=== PATIENT | male | born 1935 | race African-American/Black ===

== ENCOUNTER 2016-11-05 13:44 | Outpatient (CLI) | payer MEDICARE, BC ==
[2016-11-05 14:25] LABS: HEMATOCRIT 24.8 % (37.9-51.0); HGB HCT DIFFERENCE -2.6; MEAN CORPUSCULAR HGB CONC 29.8 g/dL (32.0-36.0); MEAN CORPUSCULAR VOLUME 71 fl (80-97); RED BLOOD COUNT 3.52 10^6/uL (4.35-5.55); RED CELL DISTRIBUTION WIDTH 15.4 % (11.5-14.0); WHITE BLOOD COUNT 13.3 10^3/uL (4.0-10.5)
[2016-11-05 14:27] LABS: HEMOGLOBIN 7.4 g/dL (13.5-17.0)
[2016-11-05] MEDS ORDERED: NORMAL SALINE 1000 ML 1,000 ML IV PRN (14:38)
[2016-11-05] MEDS ORDERED: DIPHENHYDRAMINE HCL 25 MG CAPSULE PO PRN (14:39)
[2016-11-05] MEDS ORDERED: ACETAMINOPHEN 325 MG TABLET PO PRN (14:39)
[2016-11-05] MEDS ORDERED: FUROSEMIDE INJ/PF 20 MG/2 ML SDV IV PRN (14:40)
[2016-11-05 23:42] VITALS: BP 145/69
== END 2016-11-05 23:47 | disposition home or self-care (01) ==
LOC: II 13:44 → 2S 13:51 → II 23:47
PROVIDERS: ATTEND Internal Medicine Geriatric Medicine
PROC: 30233N1 Transfusion of Nonautologous Red Blood Cells into Peripheral Vein, Percutaneous Approach (ICD-10-PCS; principal; 2016-11-05)
DX: D64.9 Anemia, unspecified (principal); N18.6 End stage renal disease; Z99.2 Dependence on renal dialysis; J44.9 Chronic obstructive pulmonary disease, unspecified; R91.8 Other nonspecific abnormal finding of lung field
CPT/HCPCS: 86900; 86901; 36430; 86850; 86920; P9016; A9270 ×2

== ENCOUNTER → 2016-11-16 | Outpatient (CLI) | payer MEDICARE, BC | LOC: RAD 13:03 | PROVIDERS: ATTEND Nurse Practitioner Family | DX: R22.2 Localized swelling, mass and lump, trunk (principal); R91.8 Other nonspecific abnormal finding of lung field; I89.0 Lymphedema, not elsewhere classified | CPT/HCPCS: 71250 ==

== ENCOUNTER 2016-11-18 06:57 | Day surgery (SDC) | payer MEDICARE, BC ==
[2016-11-18 07:38] LABS: HEMATOCRIT 28.9 % (37.9-51.0); HEMOGLOBIN 8.9 g/dL (13.5-17.0); HGB HCT DIFFERENCE -2.2; MEAN CORPUSCULAR HEMOGLOBIN 22.2 pg (27.0-33.4); MEAN CORPUSCULAR HGB CONC 30.7 g/dL (32.0-36.0); MEAN CORPUSCULAR VOLUME 72 fl (80-97); RED CELL DISTRIBUTION WIDTH 18.9 % (11.5-14.0); WHITE BLOOD COUNT 15.7 10^3/uL (4.0-10.5)
[2016-11-18 07:46] LABS: PROTHROMBIN TIME 15.1 SEC (11.4-15.4)
[2016-11-18 07:56] LABS: BLOOD UREA NITROGEN 27 mg/dL (7-20); CREATININE RESULT 3.58 mg/dL (0.52-1.25)
[2016-11-18] MEDS ORDERED: BUPIVACAINE HCL 0.5 % INJ/PF 30 ML SDV ONE (09:00)
[2016-11-18 11:53] VITALS: BP 138/73
== END 2016-11-18 11:15 | disposition home or self-care (01) ==
LOC: RAD 06:57
PROVIDERS: ATTEND Internal Medicine Geriatric Medicine
PROC: 07B33ZX Excision of Right Upper Extremity Lymphatic, Percutaneous Approach, Diagnostic (ICD-10-PCS; principal; 2016-11-18)
DX: C79.89 Secondary malignant neoplasm of other specified sites (principal); Z79.899 Other long term (current) drug therapy; Z79.01 Long term (current) use of anticoagulants; R22.30 Localized swelling, mass and lump, unspecified upper limb; Z91.041 Radiographic dye allergy status; Z79.891 Long term (current) use of opiate analgesic; M19.90 Unspecified osteoarthritis, unspecified site; M10.9 Gout, unspecified; D64.9 Anemia, unspecified; E03.9 Hypothyroidism, unspecified; I12.0 Hypertensive chronic kidney disease with stage 5 chronic kidney disease or end stage renal disease; N18.6 End stage renal disease; Z87.891 Personal history of nicotine dependence; J45.909 Unspecified asthma, uncomplicated; E78.00 Pure hypercholesterolemia, unspecified; J44.9 Chronic obstructive pulmonary disease, unspecified; R91.1 Solitary pulmonary nodule
CPT/HCPCS: 36415; 38505; 76942; 82565; 84520; 85027; 85610; 85730; 88304; 88341; 88342

== ENCOUNTER 2016-11-23 16:43 | Inpatient (IN) | payer MEDICARE, BC ==
--- NOTE | 2016-11-23 17:15 | ER Document Report ---
ED Medical Screen (RME) - General Stated Complaint: WEAKNESS Time seen by provider: 17:10 Mode of Arrival: Wheelchair Information source: Patient TRAVEL OUTSIDE OF THE [place] IN LAST 30 DAYS: No - HPI Patient complains to provider of: WEAKNESS, CHEST PAIN, SOB Onset: Other - ONGOING Onset/Duration: Constant Context: HAS MASS IN LEFT CHEST, BX DONE TUESDAY HERE. Quality of pain: Pressure Severity: Severe Pain Level: 5 Associated Symptoms: Chest pain, Hurts to breath, Shortness of breath, Weakness Exacerbated by: Denies Relieved by: Denies Similar symptoms previously: Yes Recently seen / treated by doctor: Yes - Related Data Smoking: Quit greater than 1 year Frequency of alcohol use: None Drug Abuse: None Pertinent History: ASTHMA COPD PNEUMONIA ESRD HTN DIALYSIS M-W-F Allergies/Adverse Reactions: Iodinated Contrast Media - Oral and [IV Dye, Iodine Containing] Allergy ( Verified 11/23/16 17:10) Past Medical History - Social History Family history: CVA, DM, Other - Past Medical History Cardiac Medical History: Reports: Hx Heart Attack, Hx Hypertension Denies: Hx Coronary Artery Disease Pulmonary Medical History: Reports: Hx Asthma, Hx COPD, Hx Pneumonia - When he was young Denies: Hx Bronchitis Neurological Medical History: Denies: Hx Cerebrovascular Accident, Hx Seizures Endocrine Medical History: Denies: Hx Diabetes Mellitus Type 1, Hx Diabetes Mellitus Type 2 Renal/ Medical History: Reports: Hx End Stage Renal Disease - M,W,F, Hx Hemodialysis Musculoskeltal Medical History: Denies Hx Arthritis Past Surgical History: Reports: Hx Appendectomy, Hx Tonsillectomy, Hx Vascular Surgery - dialysis fistula - Immunizations Hx Diphtheria, Pertussis, Tetanus Vaccination: Yes Physical Exam - Vital signs Vitals: Temp Pulse Resp BP Pulse Ox 98.3 F 94 16 189/74 H 94 11/23/16 17:04 11/23/16 17:04 11/23/16 17:04 11/23/16 17:04 11/23/16 17:04 Course - Vital Signs Vital signs: Temp Pulse Resp BP Pulse Ox 98.3 F 94 16 189/74 H 94 11/23/16 17:04 11/23/16 17:04 11/23/16 17:04 11/23/16 17:04 11/23/16 17:04
[2016-11-23 17:33] LABS: ABSOLUTE BASOPHILS # (AUTO) 0.1 10^3/uL (0.0-0.2); ABSOLUTE EOSINOPHILS # (AUTO) 0.1 10^3/uL (0.0-0.6); ABSOLUTE LYMPHOCYTES (AUTO) 1.3 10^3/uL (0.5-4.7); BASOPHILS % (AUTO) 0.8 % (0-2); EOSINOPHILS % (AUTO) 0.6 % (0-6); HEMATOCRIT 29.4 % (37.9-51.0); HEMOGLOBIN 9.2 g/dL (13.5-17.0); HGB HCT DIFFERENCE -1.8; LYMPHOCYTES % (AUTO) 10.4 % (13-45); MEAN CORPUSCULAR HEMOGLOBIN 22.4 pg (27.0-33.4); MEAN CORPUSCULAR HGB CONC 31.2 g/dL (32.0-36.0); MEAN CORPUSCULAR VOLUME 72 fl (80-97); MONOCYTES % (AUTO) 7.9 % (3-13); RED BLOOD COUNT 4.08 10^6/uL (4.35-5.55); SEGMENTED NEUTROPHILS % (AUTO) 80.3 % (42-78); WHITE BLOOD COUNT 12.5 10^3/uL (4.0-10.5)
[2016-11-23 17:50] LABS: ALANINE AMINOTRANSFERASE 14 U/L (21-72); ALBUMIN 3.2 g/dL (3.5-5.0); ALKALINE PHOSPHATASE 85 U/L (38-126); ANION GAP 13 (5-19); ASPARTATE AMINO TRANSFERASE 17 U/L (17-59); BILIRUBIN,TOTAL 0.6 mg/dL (0.2-1.3); BLOOD UREA NITROGEN 29 mg/dL (7-20); CALCIUM 11.3 mg/dL (8.4-10.2); CARBON DIOXIDE 31 mmol/L (22-30); CHLORIDE 96 mmol/L (98-107); CREATINE KINASE 24 U/L (55-170); CREATININE RESULT 4.77 mg/dL (0.52-1.25); GLUCOSE 105 mg/dL (75-110); POTASSIUM 3.7 mmol/L (3.6-5.0); SODIUM 139.9 mmol/L (137-145); TOTAL PROTEIN 7.4 g/dL (6.3-8.2)
[2016-11-23 17:59] LABS: CREATINE KINASE MB 0.29 ng/mL (<4.55)
[2016-11-23 18:09] LABS: TROPONIN I 0.05 ng/mL
--- NOTE | 2016-11-23 19:35 | ER Document Report ---
ED General - General Chief Complaint: Shortness Of Breath Stated Complaint: WEAKNESS Time seen by provider: 19:30 Mode of Arrival: Wheelchair Notes: Patient is a 81-year-old male that comes emergency department for chief complaint of worsening shortness of breath and weakness, patient states he can only take a couple of steps without stopping and resting because of shortness of breath. He denies fever, cough, he reports pain in his chest that is constant but this is not new. Patient was diagnosed with a mass in his right lung which has just been biopsied but no pathology report has come back yet. Past medical history of hypertension, end-stage renal disease and on dialysis. TRAVEL OUTSIDE OF THE [place] IN LAST 30 DAYS: No - Related Data Allergies/Adverse Reactions: Iodinated Contrast Media - Oral and [IV Dye, Iodine Containing] Allergy ( Verified 11/23/16 17:10) Past Medical History - General Information source: Patient - Social History Smoking Status: Former Smoker Chew tobacco use (# tins/day): No Frequency of alcohol use: None Drug Abuse: None Family History: Reviewed & Not Pertinent Patient has suicidal ideation: No Patient has homicidal ideation: No - Past Medical History Cardiac Medical History: Reports: Hx Heart Attack, Hx Hypertension Denies: Hx Coronary Artery Disease Pulmonary Medical History: Reports: Hx Asthma, Hx COPD, Hx Pneumonia - When he was young Denies: Hx Bronchitis Neurological Medical History: Denies: Hx Cerebrovascular Accident, Hx Seizures Endocrine Medical History: Denies: Hx Diabetes Mellitus Type 1, Hx Diabetes Mellitus Type 2 Renal/ Medical History: Reports: Hx End Stage Renal Disease - M,W,F, Hx Hemodialysis. Denies: Hx Peritoneal Dialysis Musculoskeltal Medical History: Denies Hx Arthritis Past Surgical History: Reports: Hx Appendectomy, Hx Tonsillectomy, Hx Vascular Surgery - dialysis fistula - Immunizations Hx Diphtheria, Pertussis, Tetanus Vaccination: Yes Hx Pneumococcal Vaccination: 07/24/16 Review of Systems - Review of Systems Constitutional: See HPI EENT: No symptoms reported Cardiovascular: See HPI Respiratory: See HPI Gastrointestinal: No symptoms reported Genitourinary: No symptoms reported Male Genitourinary: No symptoms reported Musculoskeletal: No symptoms reported Skin: No symptoms reported Hematologic/Lymphatic: No symptoms reported Neurological/Psychological: No symptoms reported Physical Exam - Vital signs Vitals: Temp Pulse Resp BP Pulse Ox 98.3 F 94 16 189/74 H 94 11/23/16 17:04 11/23/16 17:04 11/23/16 17:04 11/23/16 17:04 11/23/16 17:04 Interpretation: Normal - General General appearance: Appears well, Alert In distress: None - patient thin and appears tired, but does not appear to be in distress and is alert - HEENT Head: Normocephalic, Atraumatic Eyes: Normal Pupils: PERRL - Respiratory Respiratory status: Labored - labored with speaking or movement, not labored at rest Chest status: Nontender Breath sounds: Decreased air movement - Decreased air flow greater on the right than on the left Chest palpation: Normal - Cardiovascular Rhythm: No: Tachycardia Heart sounds: Normal auscultation, S1 appreciated, S2 appreciated Murmur: Yes - 10/29, heard throughout - Abdominal Inspection: Normal Distension: No distension Bowel sounds: Normal Tenderness: Nontender. No: Tender, Guarding - Back Back: Normal, Nontender - Extremities General upper extremity: Normal inspection, Nontender, Normal strength, Normal temperature General lower extremity: Normal inspection, Nontender, Normal strength, Normal temperature. No: Edema - Neurological Neuro grossly intact: Yes Cognition: Normal Orientation: AAOx4 Alexander Coma Scale Eye Opening: Spontaneous Alexander Coma Scale Verbal: Oriented [place] Coma Scale Motor: Obeys Commands [place] Coma Scale Total: 15 Speech: Normal Motor strength normal: LUE, RUE, LLE, RLE Sensory: Normal - Psychological Associated symptoms: Normal affect, Normal mood - Skin Skin Temperature: Warm Skin Moisture: Dry Skin Color: Normal Course - Re-evaluation Re-evalutation: EKG shows sinus rhythm, PVCs, no T-wave inversions in consecutive leads or ST segment changes noted. Chest x-ray shows similar results to recent CT. Patient had a CT one week ago that showed large mediastinal mass with a right mainstem bronchus occlusion and collapse with trace right pleural effusion, also showed possible metastatic process. Patient cannot even complete a sentence without coming obviously short of breath , patient mildly hypoxic at about 91-92% while at rest, placed on 2 L nasal cannula, this improved to 95-97%. Patient is hypertensive, dialysis patient, will monitor. No tachycardia, no fever. CBC shows mild leukocytosis, decreased from prior, hemoglobin of 9.2 which is increased from prior. Chemistry shows known renal disease, indeterminate cardiac enzymes which will be cycled. Discussed with family and patient patient's status, they request to be filled into the information so far, they state that they would like to know their options about treatments. Discussed with Dr. Mcadams per [facility] guidelines. Discussed with patient's provider Dr. Maldonado patient will be admitted to telemetry. Discussed with patient and family again, they state agreement with this, they state that they realize patient may have a poor prognosis and are interested in options including palliative care. - Vital Signs Vital signs: Temp Pulse Resp BP Pulse Ox 98.3 F 94 25 H 179/76 H 96 11/23/16 17:04 11/23/16 17:04 11/23/16 23:01 11/23/16 23:01 11/23/16 23:01 - Laboratory Result Diagrams: 11/23/16 17:20 11/23/16 17:20 Laboratory results interpreted by me: 11/23/16 11/23/16 17:20 17:20 WBC 12.5 H RBC 4.08 L Hgb 9.2 L Hct 29.4 L MCV 72 L MCH 22.4 L MCHC 31.2 L RDW 19.0 H Plt Count 519 H Seg Neutrophils % 80.3 H Lymphocytes % 10.4 L Absolute Neutrophils 10.0 H Chloride 96 L Carbon Dioxide 31 H BUN 29 H Creatinine 4.77 H Est GFR ( Amer) 14 L Est GFR (Non-Af Amer) 12 L Calcium 11.3 H ALT 14 L Creatine Kinase 24 L Albumin 3.2 L Discharge - Discharge Clinical Impression: Dyspnea on exertion, Shortness of breath, Hypoxia, Mediastinal mass, Pleural effusion Disposition: ADMITTED INPATIENT Admitting Provider: Hospitalist Unit Admitted: Telemetry
[2016-11-24] MEDS ORDERED: LISINOPRIL 10 MG TABLET PO ONE (03:30)
[2016-11-24] MEDS: HYDROCODONE/ACETAMINOPHEN 5-325 MG TABLET PO PRN ×2 (03:39→17:28)
[2016-11-24] MEDS ORDERED: DOCUSATE SODIUM 100 MG CAPSULE PO PRN (08:27)
[2016-11-24] MEDS ORDERED: ONDANSETRON 4 MG TAB.RAPDIS PO PRN (08:50)
--- NOTE | 2016-11-24 09:22 | EKG REPORT ---
SEVERITY:- BORDERLINE ECG - SINUS RHYTHM VENTRICULAR PREMATURE COMPLEX PROBABLE LEFT ATRIAL ABNORMALITY : Confirmed by: Cally Clarke 24-Nov-2016 09:21:47
[2016-11-24] MEDS ORDERED: LEVOTHYROXINE SODIUM 0.05 MG TABLET PO ONE (09:30)
[2016-11-24] MEDS ORDERED: SIMETHICONE 80 MG TAB.CHEW PO PRN (10:00)
[2016-11-24] MEDS ORDERED: (PENDING PHARMACY ID) (Omega-3 Fatty Acids [Fish Oil] 300 MG) PO SCH (10:00)
[2016-11-24] MEDS ORDERED: LEVOTHYROXINE SODIUM 0.025 MG TABLET PO SCH (10:00)
[2016-11-24] MEDS ORDERED: (PENDING PHARMACY ID) (Lisinopril [Prinivil] 20 MG) PO SCH (10:00)
[2016-11-24] MEDS ORDERED: (PENDING PHARMACY ID) (Multivit-Min/Fa/Lycopen/Lutein [Centrum Silver Men Tablet] 1 TAB) PO SCH (10:00)
[2016-11-24] MEDS ORDERED: (PENDING PHARMACY ID) (Carvedilol [Coreg] 25 MG) PO SCH (10:00)
[2016-11-24 14:49] LABS: ABSOLUTE BASOPHILS # (AUTO) 0.1 10^3/uL (0.0-0.2); ABSOLUTE EOSINOPHILS # (AUTO) 0.1 10^3/uL (0.0-0.6); ABSOLUTE MONOCYTES (AUTO) 0.9 10^3/uL (0.1-1.4); ABSOLUTE NEUT (AUTO) 9.2 10^3/uL (1.7-8.2); BASOPHILS % (AUTO) 1.3 % (0-2); EOSINOPHILS % (AUTO) 0.9 % (0-6); HEMATOCRIT 27.8 % (37.9-51.0); HEMOGLOBIN 8.8 g/dL (13.5-17.0); HGB HCT DIFFERENCE -1.4; LYMPHOCYTES % (AUTO) 8.9 % (13-45); MEAN CORPUSCULAR HGB CONC 31.6 g/dL (32.0-36.0); MEAN CORPUSCULAR VOLUME 73 fl (80-97); MONOCYTES % (AUTO) 7.9 % (3-13); RED BLOOD COUNT 3.82 10^6/uL (4.35-5.55); RED CELL DISTRIBUTION WIDTH 19.6 % (11.5-14.0); WHITE BLOOD COUNT 11.3 10^3/uL (4.0-10.5)
[2016-11-24 15:13] LABS: ANION GAP 15 (5-19); BLOOD UREA NITROGEN 39 mg/dL (7-20); CALCIUM 11.6 mg/dL (8.4-10.2); CARBON DIOXIDE 28 mmol/L (22-30); CHLORIDE 94 mmol/L (98-107); CREATININE RESULT 5.65 mg/dL (0.52-1.25); GLUCOSE 108 mg/dL (75-110); POTASSIUM 4.1 mmol/L (3.6-5.0); SODIUM 137.1 mmol/L (137-145)
[2016-11-24] MEDS: HYDRALAZINE HCL 50 MG TABLET PO SCH ×2 (15:30→20:44)
[2016-11-24] MEDS ORDERED: EPOETIN ALFA 2,000 UNIT in SYRINGE, DISPOSABLE, 1 EACH IV PRN (17:00)
--- NOTE | 2016-11-24 17:43 | CONSULTATION REPORT E ---
Consultation Report NAME: LIZZETTE KELLY : 1935 AGE: 81Y DATE: 11/24/2016 428 A TO: ANSLEY CARMONA M.D. FROM: ROBERTO MORENO M.D. Requesting Physician REASON FOR REFERRAL: Lung cancer. CONSULTATION REPORT: The patient is a 81-year-old man who was admitted 11/23/2016 with shortness of breath and pain in his chest and right shoulder. 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 He was seen by Radiation Oncology today. There is plan for him to begin palliative radiation tomorrow. I saw him at the bedside. He is undergoing hemodialysis. PAST MEDICAL HISTORY: His past medical history is significant for chronic obstructive lung disease, hypothyroidism, essential high blood pressure, end-stage renal disease on hemodialysis; he states he has been on hemodialysis since 2012. He has had abnormal weight loss. MEDICATIONS: 1. Oxycodone 5 mg. 2. Multivitamin. 3. Megace. 4. Lisinopril. 5. Levothyroxine. 6. Hydralazine. 7. Combivent. FAMILY HISTORY: Mother had diabetes. Brother essential hypertension. Sister essential hypertension, kidney disease. SOCIAL HISTORY: He is a chronic smoker, smoked about 1 per day since the age of 15. Drinks alcohol occasionally. ALLERGIES: ORAL AND IV CONTRAST. PHYSICAL EXAMINATION: GENERAL: On exam, he is an elderly man. He is awake and answers questions appropriately. He was groaning with pain in his right shoulder and also chest. VITAL SIGNS: Blood pressure 189/74. Temperature 98.3. PATHOLOGY REPORT: Metastatic poorly differentiated carcinoma, soft tissue biopsy from the scapula. DIAGNOSTIC TESTS: CT chest done without contrast 11/16/2016: The right mainstem bronchus is occluded by a right hilar mass. There is near complete collapse of the right lung with only minimal aeration right lower lobe. Trace right pleural effusion. Multiple less than 5 mm nodules present in the left lung worrisome for metastatic disease. Right hilar mass extends into the right upper mediastinum *------*. Tumor extended to the precarinal and subcarinal space. There is a large lytic lesion in the scapular wing and in the right distal clavicle and acromion measures 12 x 9 x 8 cm, worrisome for metastatic disease as well. IMPRESSION AND PLAN: The patient is a 81-year-old man with stage IV lung cancer. He has both bone and possibly contralateral lung metastases. He understands his diagnosis. He was seen by Radiation Oncology, and there is plan for him to receive palliative radiation starting tomorrow. I agree with the radiation plan. He would also benefit from long-acting pain medication given the extent of his metastatic disease and continued pain. Cancer pain is best managed with long-acting pain medication and short-acting for breakthrough. I would suggest either fentanyl patch 25 mcg every 72 hours or OxyContin 20 mg q.12 in addition to short-acting oxycodone or Percocet. I will wait for him to be discharged from the hospital before discussing palliative chemotherapy. Options would include possibly Taxol and carboplatin which would be compatible with his undergoing hemodialysis. I will discuss this in much more detail with the patient and his family members when he is discharged from the hospital. I thank you for this consultation and allowing me to be part of his care. DICTATING PHYSICIAN: ANSLEY CARMONA M.D. [id number] [facility]#: [id number] ID: [id number] JOB#: [id number] ACCT: [id number] cc:ANSLEY CARMONA M.D. >
[2016-11-24] MEDS ORDERED: CLONIDINE HCL 0.1 MG TABLET PO ONE (17:45)
[2016-11-24] MEDS: CALCIUM CARBONATE 500 MG TABLET PO SCH (17:54)
[2016-11-24] MEDS: MULTIVITAMIN TABLET PO SCH (17:55)
[2016-11-24] MEDS: LISINOPRIL 10 MG TABLET PO SCH (17:55)
[2016-11-24] MEDS: MEGESTROL ACETATE 20 MG TABLET PO SCH (17:55)
[2016-11-24] MEDS: CEFTRIAXONE 1 GM/D5W RTU 50 ML IV SCH (17:56)
[2016-11-24] MEDS: CLINDAMYCIN 600 MG/D5W RTU 600 MG/50 ML RTUPB IV SCH (17:57)
[2016-11-24] MEDS: CARVEDILOL 12.5 MG TABLET PO SCH ×2 (17:58→21:07)
--- NOTE | 2016-11-24 19:12 | PDOC H&P ---
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 Patient was brought to the ED by family due to worsening exertional shortness of breath. Patient denied any significant associated coughing or sputum production. He reported some amount of chest pain , located more centrally, worsen with movement. He denied any fever or chills. No significant leg swelling but there has been persistent right upper extremity puffiness. Patient reported compliance with hemodialysis sessions, fluid and dietary restriction. Due to persistent SOB and functional limitation patient was advised admission. In view of his advanced metastatic disease and presenting symptoms, I had extensive discussion with patient at bedside with regard to expectation and treatment plan. Patient expressed to have treatment for his cancer. Past Medical History Cardiac Medical History: Reports: Myocardial Infarction, Hypertension Denies: Coronary Artery Disease Pulmonary Medical History: Reports: Asthma, Chronic Obstructive Pulmonary Disease (COPD), Pneumonia - When he was young Denies: Bronchitis Neurological Medical History: Denies: Seizures Endocrine Medical History: Denies: Diabetes Mellitus Type 1, Diabetes Mellitus Type 2 Renal/ Medical History: Reports: End Stage Renal Disease - on hemodialysis on M,W,F Malignancy Medical History: Reports: Lung Cancer - metastatic squamous carcinoma with right scapula and shoulder involvement Musculoskeltal Medical History: Denies: Arthritis Psychiatric Medical History: Reports: Depression Hematology: Reports: Anemia Past Surgical History Past Surgical History: Reports: Appendectomy, Tonsillectomy, Vascular Surgery - dialysis fistula Social History Smoking Status: Former Smoker Frequency of Alcohol Use: None Hx Recreational Drug Use: No Drugs: None Hx Prescription Drug Abuse: No - Advance Directive Resuscitation Status: Full Code - I had extensive discussion with patient at bedside. Presently whan to be a full code. Family History Family History: Reviewed & Not Pertinent Parental Family History Reviewed: Yes Children Family History Reviewed: Yes Sibling(s) Family History Reviewed.: Yes Medication/Allergy Home Medications: Calcium Carbonate [Tums Chewable 500 mg Tab.chew] 1,000 mg PO DAILYP PRN Carvedilol [Coreg 25 mg Tablet] 25 mg PO Q12 11/24/16 Docusate Sodium [Colace 100 mg Capsule] 100 mg PO DAILYP PRN 11/24/16 Hydralazine HCl [Apresoline 50 mg Tablet] 100 mg PO Q8 11/24/16 Hydrocortisone [Hydrocortisone 0.5% Cream 28.35 gm] 1 applic TOP DAILYP PRN 11/09 Hydrocortisone [Proctozone-Hc] 1 applic TOP BID 11/24/16 Ketoconazole [Nizoral] 1 applic TOP DAILY 11/24/16 Levothyroxine Sodium [Synthroid 0.05 mg Tablet] 0.05 mg PO DAILY 11/24/16 Lisinopril [Prinivil] 20 mg PO DAILY 11/24/16 Megestrol Acetate [Megace 20 mg Tablet] 40 mg PO BIDLS 11/24/16 Multivit-Min/FA/Lycopen/Lutein [Centrum Silver Men Tablet] 1 each PO DAILY 11/24 Buckner-3/Dha/Epa/Fish Oil [Fish Oil 1,000 mg Softgel] 3,000 mg PO DAILY 11/24/16 Ondansetron HCl [Zofran 4 mg Tablet] 4 mg PO Q6HP PRN 11/24/16 Simethicone [Mylicon 80 mg Chewable Tablet] 80 mg PO DAILYP PRN 11/24/16 Tramadol HCl [Ultram 50 mg Tablet] 50 mg PO DAILYP PRN 11/24/16 Umeclidinium Brm/Vilanterol Tr [Anoro Ellipta 62.5-25 Mcg INH] 1 puff IH DAILY 11/24/16 Allergies/Adverse Reactions: Iodinated Contrast Media - Oral and [IV Dye, Iodine Containing] Allergy ( Verified 11/23/16 17:10) Review of Systems Constitutional: PRESENT: weakness. ABSENT: as per HPI, anorexia, chills, fatigue, fever(s), headache(s), night sweats, weight gain, weight loss, other Eyes: PRESENT: visual disturbances Ears: PRESENT: hearing changes Nose, Mouth, and Throat: ABSENT: as per HPI, headache(s), mouth pain, sore throat, vertigo, other Cardiovascular: PRESENT: chest pain, dyspnea on exertion, edema - right upper extremity, probably due to his chest mass and Superior vena cava syndrome. ABSENT: as per HPI, orthropnea, palpitations, other Respiratory: PRESENT: dyspnea. ABSENT: as per HPI, cough, hemoptysis, sputum, other Gastrointestinal: ABSENT: as per HPI, abdominal pain, bloating, coffee ground emesis, constipation, diarrhea, dysphagia, heartburn, hematemesis, hematochezia , melena, nausea, vomiting, other Genitourinary: PRESENT: as per HPI Musculoskeletal: PRESENT: deformity - right shoulder joint related to metastatic disease, joint swelling - right shoulder joint Integumentary: ABSENT: as per HPI, diaphoresis, erythema, lesions, pruritus, rash, wounds, other Neurological: PRESENT: weakness. ABSENT: as per HPI, abnormal gait, abnormal movements, abnormal speech, confusion, convulsions, dizziness, focal weakness, frequent falls, lack of coordination, memory loss, numbness, paresthesias, restless legs, syncope, tingling, tremor(s), vertigo, other Psychiatric: ABSENT: as per HPI, anxiety, depression, hallucinations, homidical ideation, suicidal ideation, other Endocrine: ABSENT: as per HPI, cold intolerance, flushing, heat intolerance, menstrual abnormalities, polydipsia, polyphagia, polyuria, other Hematologic/Lymphatic: ABSENT: as per HPI, easy bleeding, easy bruising, lymphadenopathy, other Physical Exam Vital Signs: Temp Pulse Resp BP Pulse Ox 98.3 F 90 14 152/74 H 99 11/24/16 07:35 11/24/16 07:35 11/24/16 07:35 11/24/16 07:35 11/24/16 07:35 Intake & Output 11/23/16 11/24/16 11/25/16 06:59 06:59 06:59 Intake Total 245 520 Balance 245 520 General appearance: PRESENT: no acute distress, cooperative, thin Head exam: PRESENT: atraumatic, normocephalic Eye exam: PRESENT: conjunctiva pink, EOMI, PERRLA Ear exam: PRESENT: normal external ear exam Mouth exam: PRESENT: moist, tongue midline Teeth exam: ABSENT: dental caries, dental tenderness, edentulous, poor dentation , other Throat exam: ABSENT: post pharyngeal erythema, tonsillar erythema, tonsillar exudate, tonsillogmegaly, other Neck exam: PRESENT: full ROM. ABSENT: carotid bruit, JVD, lymphadenopathy, thyromegaly Respiratory exam: PRESENT: decreased breath sounds. ABSENT: accessory muscle use, chest wall tenderness, clear to auscultation ifeoma, crackles, prolonged expiratory phas, rales, retraction, rhonchi, stridor, symmetrical, tachypnea, unlabored, wheezes, other Cardiovascular exam: PRESENT: RRR. ABSENT: diastolic murmur, rubs, systolic murmur GI/Abdominal exam: PRESENT: normal bowel sounds, soft. ABSENT: distended, guarding, mass, organolmegaly, rebound, tenderness Extremities exam: PRESENT: full ROM, tenderness - right shoulder joint and scapula region Musculoskeletal exam: PRESENT: ambulatory, deformity - right shoulder joint and scapula region Neurological exam: PRESENT: alert, awake, oriented to person, oriented to place , oriented to time, oriented to situation, CN II-XII grossly intact, motor sensory deficit Psychiatric exam: PRESENT: appropriate affect, normal mood. ABSENT: homicidal ideation, suicidal ideation Results Laboratory Results: 11/24/16 14:26 11/24/16 14:26 11/24/16 11/24/16 14:26 14:26 WBC 11.3 H RBC 3.82 L Hgb 8.8 L Hct 27.8 L MCV 73 L MCH 23.0 L MCHC 31.6 L RDW 19.6 H Plt Count 485 H Seg Neutrophils % 81.0 H Lymphocytes % 8.9 L Monocytes % 7.9 Eosinophils % 0.9 Basophils % 1.3 Absolute Neutrophils 9.2 H Absolute Lymphocytes 1.0 Absolute Monocytes 0.9 Absolute Eosinophils 0.1 Absolute Basophils 0.1 Sodium 137.1 Potassium 4.1 Chloride 94 L Carbon Dioxide 28 Anion Gap 15 BUN 39 H Creatinine 5.65 H Est GFR ( Amer) 12 L Est GFR (Non-Af Amer) 10 L Glucose 108 Calcium 11.6 H Impressions: Chest X-Ray 11/23/16 17:11 IMPRESSION: DIFFUSE OPACITY IN THE RIGHT LUNG, SIMILAR TO THE RECENT CT, SECONDARY TO COLLAPSE FROM OBSTRUCTING HILAR MASS. 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 (2) Lung cancer metastatic to bone Is this a current diagnosis for this admission?: Yes (3) Dyspnea on exertion Is this a current diagnosis for this admission?: Yes (4) Hypoxia Is this a current diagnosis for this admission?: Yes (5) Lung mass Is this a current diagnosis for this admission?: Yes (6) Mediastinal mass Is this a current diagnosis for this admission?: Yes (7) End stage renal disease on dialysis Is this a current diagnosis for this admission?: Yes - Time Time Spent: 50 to 70 Minutes Medications reviewed and adjusted accordingly: Yes Anticipated discharge: Home with Homehealth Within: Other - Inpatient Certification Medical Necessity: Need Close Monitoring Due to Risk of Patient Decompensation, Need For Continuous Telemetry Monitoring, Risk of Complication if Not Cared For in Hospital Post Hospital Care: D/C Forest [employer] Documentation - Plan Summary Plan Summary: see admitting physician other.
--- NOTE | 2016-11-24 19:14 | PDOC CONSULTATION ---
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 Patient was brought to the ED by family due to worsening exertional shortness of breath. Patient denied any significant associated coughing or sputum production. He reported some amount of chest pain, located more centrally, worsen with movement. He denied any fever or chills. Denied any history of fever chills or hemoptysis. Has been having persistent right upper extremity puffiness and pain in the neck especially around the right aspect. Site of biopsy of scapular masses or shown squamous cell carcinoma poorly differentiated. CT scan done earlier showed the lung mass with bilateral hilar lymphadenopathy and possibly contralateral involvement as well. Patient reported compliance with hemodialysis sessions, fluid and dietary restriction. Due to persistent SOB and functional limitation patient was advised admission. His next dialysis is due for today. In view of his advanced metastatic disease and presenting symptoms, plan is for him to undergo radiation therapy for treatment of the pain followed by palliative chemotherapy. Dr. Cardona has already seen the patient. Past Medical History Cardiac Medical History: Reports: Hypertension-primary, Myocardial Infarction Denies: Coronary Artery Disease Pulmonary Medical History: Reports: Asthma, Chronic Obstructive Pulmonary Disease (COPD), Pneumonia - When he was young Denies: Bronchitis Neurological Medical History: Denies: Seizures Endocrine Medical History: Denies: Diabetes Mellitus Type 1, Diabetes Mellitus Type 2 Renal/ Medical History: Reports: End Stage Renal Disease - on hemodialysis on M,W,F Malignancy Medical History: Reports: Lung Cancer - metastatic squamous carcinoma with right scapula and shoulder involvement Musculoskeltal Medical History: Denies: Arthritis Psychiatric Medical History: Reports: Depression Past Surgical History Past Surgical History: Reports: Appendectomy, Tonsillectomy, Vascular Surgery - dialysis fistula Social History Smoking Status: Former Smoker Frequency of Alcohol Use: None Hx Recreational Drug Use: No Drugs: None Hx Prescription Drug Abuse: No - Advance Directive Resuscitation Status: Full Code Family History Parental Family History Reviewed: Yes - negative for ESRD. Children Family History Reviewed: No Sibling(s) Family History Reviewed.: No Medication/Allergy Home Medications: Calcium Carbonate [Tums Chewable 500 mg Tab.chew] 1,000 mg PO DAILYP PRN Carvedilol [Coreg 25 mg Tablet] 25 mg PO Q12 11/24/16 Docusate Sodium [Colace 100 mg Capsule] 100 mg PO DAILYP PRN 11/24/16 Hydralazine HCl [Apresoline 50 mg Tablet] 100 mg PO Q8 11/24/16 Hydrocortisone [Hydrocortisone 0.5% Cream 28.35 gm] 1 applic TOP DAILYP PRN 11/09 Hydrocortisone [Proctozone-Hc] 1 applic TOP BID 11/24/16 Ketoconazole [Nizoral] 1 applic TOP DAILY 11/24/16 Levothyroxine Sodium [Synthroid 0.05 mg Tablet] 0.05 mg PO DAILY 11/24/16 Lisinopril [Prinivil] 20 mg PO DAILY 11/24/16 Megestrol Acetate [Megace 20 mg Tablet] 40 mg PO BIDLS 11/24/16 Multivit-Min/FA/Lycopen/Lutein [Centrum Silver Men Tablet] 1 each PO DAILY 11/24 Snyder-3/Dha/Epa/Fish Oil [Fish Oil 1,000 mg Softgel] 3,000 mg PO DAILY 11/24/16 Ondansetron HCl [Zofran 4 mg Tablet] 4 mg PO Q6HP PRN 11/24/16 Simethicone [Mylicon 80 mg Chewable Tablet] 80 mg PO DAILYP PRN 11/24/16 Tramadol HCl [Ultram 50 mg Tablet] 50 mg PO DAILYP PRN 11/24/16 Umeclidinium Brm/Vilanterol Tr [Anoro Ellipta 62.5-25 Mcg INH] 1 puff IH DAILY 11/24/16 Hydrocodone/Acetaminophen [[place] 5-325 mg Tablet] 1 tab PO Q4HP PRN #90 tablet 11/30/16 Lorazepam [Ativan 0.5 mg Tablet] 0.25 mg PO Q6HP PRN #60 tablet 11/30/16 Allergies/Adverse Reactions: Iodinated Contrast Media - Oral and [IV Dye, Iodine Containing] Allergy ( Verified 11/23/16 17:10) Review of Systems Review of Systems: Constitutional: PRESENT: as per HPI. ABSENT: chills, fever(s), headache(s), weight gain, Eyes: ABSENT: visual disturbances Ears: ABSENT: hearing changes Cardiovascular: ABSENT: chest pain, orthropnea, palpitations Respiratory: ABSENT: cough, hemoptysis Gastrointestinal: ABSENT: abdominal pain, constipation, diarrhea, hematemesis, hematochezia, nausea, vomiting Genitourinary: ABSENT: dysuria, hematuria Musculoskeletal: ABSENT: joint swelling Integumentary: ABSENT: rash, wounds Neurological: ABSENT: abnormal gait, abnormal speech, confusion, dizziness, focal weakness, syncope Psychiatric: ABSENT: anxiety, depression, homicidal ideation, suicidal ideation Endocrine: ABSENT: cold intolerance, heat intolerance, menstrual abnormalities, polydipsia, polyuria Hematologic/Lymphatic: ABSENT: easy bleeding, easy bruising, lymphadenopathy Constitutional: PRESENT: weakness. ABSENT: fever(s), headache(s), night sweats Ears: ABSENT: hearing changes Nose, Mouth, and Throat: ABSENT: mouth pain, sore throat Cardiovascular: PRESENT: chest pain, dyspnea on exertion. ABSENT: edema Respiratory: PRESENT: dyspnea. ABSENT: hemoptysis Gastrointestinal: ABSENT: abdominal pain, coffee ground emesis, diarrhea, dysphagia, heartburn, hematemesis, hematochezia Genitourinary: ABSENT: dysuria, hematuria Neurological: PRESENT: confusion, dizziness. ABSENT: abnormal speech Psychiatric: PRESENT: anxiety Physical Exam Vital Signs: Temp Pulse Resp BP Pulse Ox 98.3 F 90 14 152/74 H 99 11/24/16 07:35 11/24/16 07:35 11/24/16 07:35 11/24/16 07:35 11/24/16 07:35 Intake & Output 11/23/16 11/24/16 11/25/16 06:59 06:59 06:59 Intake Total 245 1020 Output Total 1000 Balance 245 20 General appearance: PRESENT: mild distress Eye exam: PRESENT: conjunctiva pale, EOMI, PERRLA. ABSENT: nystagmus Mouth exam: PRESENT: neck supple. ABSENT: moist Neck exam: PRESENT: lymphadenopathy - Shotty nodes are seen in the supraclavicular region on both sides.. ABSENT: meningismus, tenderness, thyromegaly, tracheal deviation Respiratory exam: PRESENT: clear to auscultation ifeoma, tachypnea. ABSENT: crackles, rales, rhonchi, symmetrical Cardiovascular exam: PRESENT: +S1, +S2 GI/Abdominal exam: PRESENT: normal bowel sounds, soft. ABSENT: distended, firm , tenderness Extremities exam: ABSENT: pedal edema Neurological exam: PRESENT: alert, awake, oriented to person, oriented to place , oriented to time Psychiatric exam: PRESENT: appropriate affect Skin exam: PRESENT: dry. ABSENT: cyanosis, mottled, petechiae, rash Results Laboratory Results: 11/24/16 14:26 11/24/16 14:26 11/24/16 11/24/16 14:26 14:26 WBC 11.3 H RBC 3.82 L Hgb 8.8 L Hct 27.8 L MCV 73 L MCH 23.0 L MCHC 31.6 L RDW 19.6 H Plt Count 485 H Seg Neutrophils % 81.0 H Lymphocytes % 8.9 L Monocytes % 7.9 Eosinophils % 0.9 Basophils % 1.3 Absolute Neutrophils 9.2 H Absolute Lymphocytes 1.0 Absolute Monocytes 0.9 Absolute Eosinophils 0.1 Absolute Basophils 0.1 Sodium 137.1 Potassium 4.1 Chloride 94 L Carbon Dioxide 28 Anion Gap 15 BUN 39 H Creatinine 5.65 H Est GFR ( Amer) 12 L Est GFR (Non-Af Amer) 10 L Glucose 108 Calcium 11.6 H Impressions: Chest X-Ray 11/23/16 17:11 IMPRESSION: DIFFUSE OPACITY IN THE RIGHT LUNG, SIMILAR TO THE RECENT CT, SECONDARY TO COLLAPSE FROM OBSTRUCTING HILAR MASS. Assessment & Plan - Diagnosis (1) End stage renal disease on dialysis Is this a current diagnosis for this admission?: YesPlan: Plan for dialysis. Orders have been placed. Need to discuss DO NOT RESUSCITATE status with daughter. (2) Lung mass Is this a current diagnosis for this admission?: YesPlan: As per Dr. Maldonado. Believe he has consulted with Dr. Cardona. (3) Anemia in chronic kidney disease (CKD) Is this a current diagnosis for this admission?: YesPlan: We'll adjust erythropoietin (4) Lung cancer metastatic to bone Is this a current diagnosis for this admission?: Yes (5) Postobstructive pneumonia Is this a current diagnosis for this admission?: YesPlan: As per Dr. Maldonado
[2016-11-25] MEDS: CLINDAMYCIN 600 MG/D5W RTU 600 MG/50 ML RTUPB IV SCH ×3 (01:38→18:02)
[2016-11-25] MEDS: HYDROCODONE/ACETAMINOPHEN 5-325 MG TABLET PO PRN ×3 (04:00→21:59)
--- NOTE | 2016-11-25 08:23 | PDOC PROGRESS REPORT ---
Subjective Progress Note for:: 11/25/16 Subjective:: Interval assessment and input of specialist noted. Patient is schedule to start radiation therapy today as per Dr Sebastian recommendation and discussion with me yesterday. He will start on chemotherapy as per Dr Cardona after further discussion with patient and family on outpatient. I will discussion need for PEG tube placement with Dr Sebastian in view of hilar/Lung mass radiation and consideration of associated possible esophagitis. He denied any pain presently. No nausea or vomiting. Tolerating oral feeding. No reported fever or chills. Remain on IV Cleocin and Rocephin coverage. Physical Exam Vital Signs: Temp Pulse Resp BP Pulse Ox 98.6 F 88 16 136/63 H 96 11/25/16 04:39 11/25/16 04:39 11/25/16 04:39 11/25/16 04:39 11/25/16 04:39 Intake & Output 11/24/16 11/25/16 11/26/16 06:59 06:59 06:59 Intake Total 245 1270 Output Total 1000 Balance 245 270 Weight 49.7 kg General appearance: PRESENT: no acute distress, cooperative Head exam: PRESENT: atraumatic, normocephalic Eye exam: PRESENT: conjunctiva pink, EOMI, PERRLA Mouth exam: PRESENT: moist Neck exam: PRESENT: full ROM. ABSENT: carotid bruit, JVD, lymphadenopathy, thyromegaly Respiratory exam: PRESENT: decreased breath sounds. ABSENT: accessory muscle use, chest wall tenderness, clear to auscultation ifeoma, crackles, prolonged expiratory phas, rales, retraction, rhonchi, stridor, symmetrical, tachypnea, unlabored, wheezes, other Cardiovascular exam: PRESENT: RRR. ABSENT: diastolic murmur, rubs, systolic murmur GI/Abdominal exam: PRESENT: normal bowel sounds, soft. ABSENT: distended, guarding, mass, organolmegaly, rebound, tenderness Extremities exam: PRESENT: joint swelling - right shoulder joint region, tenderness - right shoulder joint region Musculoskeletal exam: PRESENT: deformity - right shoulder joint region, tenderness - right shoulder joint region Neurological exam: PRESENT: alert, awake, CN II-XII grossly intact, motor sensory deficit Psychiatric exam: PRESENT: appropriate affect, normal mood. ABSENT: homicidal ideation, suicidal ideation Skin exam: PRESENT: dry, warm, other - left arm dialysis shunt site dressing is okay. Results Laboratory Results: 11/24/16 14:26 11/24/16 14:26 11/24/16 11/24/16 14:26 14:26 WBC 11.3 H RBC 3.82 L Hgb 8.8 L Hct 27.8 L MCV 73 L MCH 23.0 L MCHC 31.6 L RDW 19.6 H Plt Count 485 H Seg Neutrophils % 81.0 H Lymphocytes % 8.9 L Monocytes % 7.9 Eosinophils % 0.9 Basophils % 1.3 Absolute Neutrophils 9.2 H Absolute Lymphocytes 1.0 Absolute Monocytes 0.9 Absolute Eosinophils 0.1 Absolute Basophils 0.1 Sodium 137.1 Potassium 4.1 Chloride 94 L Carbon Dioxide 28 Anion Gap 15 BUN 39 H Creatinine 5.65 H Est GFR ( Amer) 12 L Est GFR (Non-Af Amer) 10 L Glucose 108 Calcium 11.6 H Impressions: Chest X-Ray 11/23/16 17:11 IMPRESSION: DIFFUSE OPACITY IN THE RIGHT LUNG, SIMILAR TO THE RECENT CT, SECONDARY TO COLLAPSE FROM OBSTRUCTING HILAR MASS. 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 (2) Lung cancer metastatic to bone Is this a current diagnosis for this admission?: YesPlan: As noted patient will start radiation therapy today. (3) Dyspnea on exertion Is this a current diagnosis for this admission?: YesPlan: Improved on supplemental oxygen at 2L/min via nasal cannula. (4) Hypoxia Is this a current diagnosis for this admission?: Yes (5) Lung mass Is this a current diagnosis for this admission?: YesPlan: As noted patient will start radiation therapy today. (6) Mediastinal mass Is this a current diagnosis for this admission?: YesPlan: As noted patient will start radiation therapy today. (7) End stage renal disease on dialysis Is this a current diagnosis for this admission?: YesPlan: Continue hemodialysis as per Dr. Yan, hoop cutter, directive (8) Postobstructive pneumonia Is this a current diagnosis for this admission?: YesPlan: Continue IV Rocephin and Cleocin coverage. Follow up on blood and sputum culture findings. - Time Time Spent with patient: 25-34 minutes Medications reviewed and adjusted accordingly: Yes Anticipated discharge: Home with Homehealth Within: Other - Inpatient Certification Medical Necessity: Need Close Monitoring Due to Risk of Patient Decompensation, Need For IV Fluids, Need For Continuous Telemetry Monitoring, Need for IV Antibiotics, Risk of Complication if Not Cared For in Hospital - Plan Summary Plan Summary: See attending physician orders.
--- NOTE | 2016-11-25 11:03 | PDOC PROGRESS REPORT ---
Subjective Progress Note for:: 11/25/16 Subjective:: Seen today. He underwent hemodialysis yesterday and today feeling better. He still having pain around his right shoulder and is due for radiation tomorrow hopefully will relieve that quite a bit. Breathing is a whole lot better. She is comfortable at the moment. Son who is at the bedside is happy with his current status Physical Exam Vital Signs: Temp Pulse Resp BP Pulse Ox 98.6 F 85 16 136/63 H 96 11/25/16 04:39 11/25/16 07:00 11/25/16 04:39 11/25/16 04:39 11/25/16 04:39 Intake & Output 11/24/16 11/25/16 11/26/16 06:59 06:59 06:59 Intake Total 245 1270 Output Total 1000 Balance 245 270 Weight 49.7 kg General appearance: PRESENT: no acute distress Respiratory exam: PRESENT: clear to auscultation ifeoma. ABSENT: crackles, rhonchi Cardiovascular exam: PRESENT: +S1, +S2 GI/Abdominal exam: PRESENT: normal bowel sounds, soft. ABSENT: distended, firm , tenderness Neurological exam: PRESENT: alert, awake, oriented to person, oriented to place , oriented to time Results Laboratory Results: 11/24/16 14:26 11/24/16 14:26 11/24/16 11/24/16 14:26 14:26 WBC 11.3 H RBC 3.82 L Hgb 8.8 L Hct 27.8 L MCV 73 L MCH 23.0 L MCHC 31.6 L RDW 19.6 H Plt Count 485 H Seg Neutrophils % 81.0 H Lymphocytes % 8.9 L Monocytes % 7.9 Eosinophils % 0.9 Basophils % 1.3 Absolute Neutrophils 9.2 H Absolute Lymphocytes 1.0 Absolute Monocytes 0.9 Absolute Eosinophils 0.1 Absolute Basophils 0.1 Sodium 137.1 Potassium 4.1 Chloride 94 L Carbon Dioxide 28 Anion Gap 15 BUN 39 H Creatinine 5.65 H Est GFR ( Amer) 12 L Est GFR (Non-Af Amer) 10 L Glucose 108 Calcium 11.6 H Impressions: Chest X-Ray 11/23/16 17:11 IMPRESSION: DIFFUSE OPACITY IN THE RIGHT LUNG, SIMILAR TO THE RECENT CT, SECONDARY TO COLLAPSE FROM OBSTRUCTING HILAR MASS. Assessment & Plan - Diagnosis (1) End stage renal disease on dialysis Is this a current diagnosis for this admission?: YesPlan: Given dialysis yesterday without any issues and feeling better. Plan for dialysis tomorrow and orders have been placed. (2) Lung cancer metastatic to bone Is this a current diagnosis for this admission?: YesPlan: As per Dr. Yuen (3) Postobstructive pneumonia Is this a current diagnosis for this admission?: Yes
[2016-11-25] MEDS: CEFTRIAXONE 1 GM/D5W RTU 50 ML IV SCH (11:33)
[2016-11-25] MEDS: HYDRALAZINE HCL 50 MG TABLET PO SCH ×3 (11:33→18:02)
[2016-11-25] MEDS: CALCIUM CARBONATE 500 MG TABLET PO SCH (11:34)
[2016-11-25] MEDS: LISINOPRIL 10 MG TABLET PO SCH (11:34)
[2016-11-25] MEDS: MULTIVITAMIN TABLET PO SCH (11:34)
[2016-11-25] MEDS: LEVOTHYROXINE SODIUM 0.05 MG TABLET PO SCH (11:34)
[2016-11-25] MEDS: CARVEDILOL 12.5 MG TABLET PO SCH ×2 (11:37→21:11)
[2016-11-25] MEDS: MEGESTROL ACETATE 20 MG TABLET PO SCH ×2 (13:57→18:02)
[2016-11-25] MEDS: OMEGA-3 ACID ETHYL ESTERS 1 GM CAPSULE PO SCH (18:02)
[2016-11-26] MEDS: CLINDAMYCIN 600 MG/D5W RTU 600 MG/50 ML RTUPB IV SCH ×3 (01:09→18:29)
[2016-11-26] MEDS ORDERED: EPOETIN ALFA 10,000 UNIT in SYRINGE, DISPOSABLE, 1 EACH IV PRN (07:00)
[2016-11-26 07:12] LABS: ABSOLUTE EOSINOPHILS # (AUTO) 0.1 10^3/uL (0.0-0.6); ABSOLUTE LYMPHOCYTES (AUTO) 0.8 10^3/uL (0.5-4.7); ABSOLUTE MONOCYTES (AUTO) 0.9 10^3/uL (0.1-1.4); ABSOLUTE NEUT (AUTO) 10.9 10^3/uL (1.7-8.2); BASOPHILS % (AUTO) 0.1 % (0-2); HEMATOCRIT 28.3 % (37.9-51.0); HEMOGLOBIN 8.9 g/dL (13.5-17.0); HGB HCT DIFFERENCE -1.6; LYMPHOCYTES % (AUTO) 6.3 % (13-45); MEAN CORPUSCULAR HEMOGLOBIN 22.7 pg (27.0-33.4); MEAN CORPUSCULAR HGB CONC 31.6 g/dL (32.0-36.0); MEAN CORPUSCULAR VOLUME 72 fl (80-97); MONOCYTES % (AUTO) 6.8 % (3-13); RED BLOOD COUNT 3.93 10^6/uL (4.35-5.55); RED CELL DISTRIBUTION WIDTH 19.6 % (11.5-14.0); SEGMENTED NEUTROPHILS % (AUTO) 85.8 % (42-78); WHITE BLOOD COUNT 12.7 10^3/uL (4.0-10.5)
[2016-11-26 07:28] LABS: ANION GAP 14 (5-19); BLOOD UREA NITROGEN 26 mg/dL (7-20); CARBON DIOXIDE 29 mmol/L (22-30); CHLORIDE 92 mmol/L (98-107); CREATININE RESULT 5.09 mg/dL (0.52-1.25); GLUCOSE 146 mg/dL (75-110); POTASSIUM 3.6 mmol/L (3.6-5.0); SODIUM 134.5 mmol/L (137-145)
[2016-11-26] MEDS: CEFTRIAXONE 1 GM/D5W RTU 50 ML IV SCH (11:21)
[2016-11-26] MEDS: MEGESTROL ACETATE 20 MG TABLET PO SCH ×2 (11:22→18:29)
[2016-11-26] MEDS: LEVOTHYROXINE SODIUM 0.05 MG TABLET PO SCH (11:22)
[2016-11-26] MEDS: HYDRALAZINE HCL 50 MG TABLET PO SCH ×3 (11:22→18:29)
[2016-11-26] MEDS: MULTIVITAMIN TABLET PO SCH (11:22)
[2016-11-26] MEDS: CARVEDILOL 12.5 MG TABLET PO SCH ×2 (11:22→21:27)
[2016-11-26] MEDS: LISINOPRIL 10 MG TABLET PO SCH (11:22)
[2016-11-26] MEDS: CALCIUM CARBONATE 500 MG TABLET PO SCH (11:23)
--- NOTE | 2016-11-26 13:42 | PDOC PROGRESS REPORT ---
Subjective Progress Note for:: 11/26/16 Subjective:: Remain on supplemental oxygen via nasal cannula at 2 L/min. Denied any chest pain. Right shoulder joint pain is satisfactorily control on current medication management. No reported fever or chills. Remain on IV Cleocin and Rocephin coverage. He denied nausea or vomiting. Tolerating oral feeding. Patient reported some degree of constipation. Physical Exam Vital Signs: Temp Pulse Resp BP Pulse Ox 98.5 F 98 15 134/59 H 97 11/26/16 07:54 11/26/16 07:54 11/26/16 07:54 11/26/16 07:54 11/26/16 07:54 Intake & Output 11/25/16 11/26/16 11/27/16 06:59 06:59 06:59 Intake Total 1270 910 Output Total 1000 Balance 270 910 Weight 49.7 kg 49.7 kg General appearance: PRESENT: no acute distress, well-developed, well-nourished Head exam: PRESENT: atraumatic, normocephalic Eye exam: PRESENT: conjunctiva pink, EOMI, PERRLA. ABSENT: scleral icterus Respiratory exam: PRESENT: decreased breath sounds - lower right lung zone region Cardiovascular exam: PRESENT: RRR. ABSENT: diastolic murmur, rubs, systolic murmur GI/Abdominal exam: PRESENT: normal bowel sounds, soft. ABSENT: distended, guarding, mass, organolmegaly, rebound, tenderness Extremities exam: PRESENT: full ROM Musculoskeletal exam: PRESENT: deformity - right shoulder joint deformity due to metastatic disease process., full ROM - limited across right shoulder joint due to elicited tenderness from bone metastatic involvement. Neurological exam: PRESENT: alert, awake, CN II-XII grossly intact, motor sensory deficit Psychiatric exam: PRESENT: appropriate affect, normal mood. ABSENT: homicidal ideation, suicidal ideation Skin exam: PRESENT: dry, intact, warm. ABSENT: cyanosis, rash Results Laboratory Results: 11/26/16 06:58 11/26/16 06:58 11/26/16 11/26/16 06:58 06:58 WBC 12.7 H RBC 3.93 L Hgb 8.9 L Hct 28.3 L MCV 72 L MCH 22.7 L MCHC 31.6 L RDW 19.6 H Plt Count 457 H Seg Neutrophils % 85.8 H Lymphocytes % 6.3 L Monocytes % 6.8 Eosinophils % 1.0 Basophils % 0.1 Absolute Neutrophils 10.9 H Absolute Lymphocytes 0.8 Absolute Monocytes 0.9 Absolute Eosinophils 0.1 Absolute Basophils 0.0 Sodium 134.5 L Potassium 3.6 Chloride 92 L Carbon Dioxide 29 Anion Gap 14 BUN 26 H Creatinine 5.09 H Est GFR ( Amer) 13 L Est GFR (Non-Af Amer) 11 L Glucose 146 H Calcium 11.0 H Impressions: Chest X-Ray 11/23/16 17:11 IMPRESSION: DIFFUSE OPACITY IN THE RIGHT LUNG, SIMILAR TO THE RECENT CT, SECONDARY TO COLLAPSE FROM OBSTRUCTING HILAR MASS. 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 I discussed concern of possible esophagitis from hilar and lung mass radiation therapy. Presently no need since radiation administration will be controlled to avoid this problem. (2) Lung cancer metastatic to bone Is this a current diagnosis for this admission?: Yes (3) Dyspnea on exertion Is this a current diagnosis for this admission?: Yes (4) Hypoxia Is this a current diagnosis for this admission?: Yes (5) Lung mass Is this a current diagnosis for this admission?: Yes (6) Mediastinal mass Is this a current diagnosis for this admission?: Yes (7) End stage renal disease on dialysis Is this a current diagnosis for this admission?: YesPlan: Continue hemodialysis as per Dr. Yan, carton stenciler, directive. Patient had session of dialysis earlier today. (8) Postobstructive pneumonia Is this a current diagnosis for this admission?: YesPlan: Continue IV Rocephin and Cleocin coverage. Follow up on blood and sputum culture findings, no growth to date. (9) Constipation Qualifiers: Constipation type: unspecified constipation type Qualified Code(s): K59.00 - Constipation, unspecified Is this a current diagnosis for this admission?: YesPlan: Start on Colace 200 mg p.o qhs. - Time Time Spent with patient: 25-34 minutes Medications reviewed and adjusted accordingly: Yes Anticipated discharge: Home with Homehealth Within: Other - Inpatient Certification Medical Necessity: Need Close Monitoring Due to Risk of Patient Decompensation, Need For Continuous Telemetry Monitoring, Need for Pain Control, Need for IV Antibiotics, Risk of Complication if Not Cared For in Hospital Post Hospital Care: D/C House Carpenter Helper Documentation - Plan Summary Plan Summary: See attending physician orders.
[2016-11-26] MEDS: HYDROCODONE/ACETAMINOPHEN 5-325 MG TABLET PO PRN (14:37)
[2016-11-26] MEDS: OMEGA-3 ACID ETHYL ESTERS 1 GM CAPSULE PO SCH (18:29)
--- NOTE | 2016-11-26 19:47 | PDOC PROGRESS REPORT ---
Subjective Progress Note for:: 11/26/16 Subjective:: I have seen the patient at around 8:45 AM during dialysis for coverage for Dr. Jason Yan. Patient was stable except he is complaining of his right shoulder pain. His blood pressure is also elevated. He denies any other complaints of chest chest pains but continues to have slight shortness of breath. Physical Exam Vital Signs: Temp Pulse Resp BP Pulse Ox 98.4 F 96 16 130/52 H 98 11/26/16 15:14 11/26/16 15:14 11/26/16 15:14 11/26/16 15:14 11/26/16 15:14 Intake & Output 11/25/16 11/26/16 11/27/16 06:59 06:59 06:59 Intake Total 1270 910 450 Output Total 1000 Balance 270 910 450 Weight 49.7 kg 49.7 kg Vital signs during dialysis this morning: Blood pressure 174/79, heart rate of 53, blood flow rate of 450 mL per minute, dialysate flow rate of 600 mL per minute . Exam: General appearance: [PRESENT: no acute distress, cooperative, well-developed, well-nourished] Head exam: [PRESENT: atraumatic, normocephalic] Eye exam: [PRESENT: conjunctiva pale, PERRLA. ABSENT: scleral icterus] Neck exam: [ABSENT: JVD] Respiratory exam: [PRESENT: Normal breath sounds. ABSENT: crackles, rales, rhonchi, unlabored, wheezes] Cardiovascular exam: [PRESENT: Regular rate rhythm -+S1, +S2. Grade 3/6 systolic murmur ABSENT: diastolic murmur] GI/Abdominal exam: [PRESENT: normal bowel sounds, soft. ABSENT: guarding, mass , tenderness] Extremities exam: [ABSENT: No edema] Neurological exam: [PRESENT: alert, awake, oriented to person, place and time.] Skin exam: [PRESENT: dry, warm,] Cardiovascular exam: PRESENT: +S1, +S2 GI/Abdominal exam: PRESENT: normal bowel sounds, soft. ABSENT: distended, firm , tenderness Results Laboratory Results: 11/26/16 06:58 11/26/16 06:58 11/26/16 11/26/16 06:58 06:58 WBC 12.7 H RBC 3.93 L Hgb 8.9 L Hct 28.3 L MCV 72 L MCH 22.7 L MCHC 31.6 L RDW 19.6 H Plt Count 457 H Seg Neutrophils % 85.8 H Lymphocytes % 6.3 L Monocytes % 6.8 Eosinophils % 1.0 Basophils % 0.1 Absolute Neutrophils 10.9 H Absolute Lymphocytes 0.8 Absolute Monocytes 0.9 Absolute Eosinophils 0.1 Absolute Basophils 0.0 Sodium 134.5 L Potassium 3.6 Chloride 92 L Carbon Dioxide 29 Anion Gap 14 BUN 26 H Creatinine 5.09 H Est GFR ( Amer) 13 L Est GFR (Non-Af Amer) 11 L Glucose 146 H Calcium 11.0 H Impressions: Chest X-Ray 11/23/16 17:11 IMPRESSION: DIFFUSE OPACITY IN THE RIGHT LUNG, SIMILAR TO THE RECENT CT, SECONDARY TO COLLAPSE FROM OBSTRUCTING HILAR MASS. Assessment & Plan - Diagnosis (1) End stage renal disease on dialysis Is this a current diagnosis for this admission?: YesPlan: We did dialysis today for 3 hours, using the patient's AV fistula, with 3 potassium bath with 2 calcium , blood flow rate of 450 mL per minute, dialysate flow rate of 800 mL per minute, ultrafiltration as tolerated, no heparin and Procrit with 10,000 units during dialysis intravenously. We will continue dialysis support while here in the hospital. (2) Anemia in chronic kidney disease (CKD) Is this a current diagnosis for this admission?: YesPlan: Procrit will be given as needed during dialysis treatment (3) Hypercalcemia Is this a current diagnosis for this admission?: YesPlan: We will use low calcium bath during dialysis treatment. Discontinue calcium carbonate supplement. (4) Hyponatremia Is this a current diagnosis for this admission?: YesPlan: Mild. (5) Dyspnea on exertion Is this a current diagnosis for this admission?: Yes (6) Lung cancer metastatic to bone Is this a current diagnosis for this admission?: Yes (7) Postobstructive pneumonia Is this a current diagnosis for this admission?: YesPlan: On IV antibiotics. - Time Time with patient: 15-25 minutes
[2016-11-26] MEDS: DOCUSATE SODIUM 100 MG CAPSULE PO SCH (21:27)
[2016-11-27] MEDS: CLINDAMYCIN 600 MG/D5W RTU 600 MG/50 ML RTUPB IV SCH ×3 (02:18→17:07)
[2016-11-27] MEDS: HYDROCODONE/ACETAMINOPHEN 5-325 MG TABLET PO PRN ×3 (02:35→21:23)
[2016-11-27] MEDS: LEVOTHYROXINE SODIUM 0.05 MG TABLET PO SCH (08:38)
[2016-11-27] MEDS: LISINOPRIL 10 MG TABLET PO SCH (09:40)
[2016-11-27] MEDS: HYDRALAZINE HCL 50 MG TABLET PO SCH ×3 (09:40→17:07)
[2016-11-27] MEDS: MULTIVITAMIN TABLET PO SCH (09:40)
[2016-11-27] MEDS: CARVEDILOL 12.5 MG TABLET PO SCH ×2 (09:40→21:19)
[2016-11-27] MEDS: CEFTRIAXONE 1 GM/D5W RTU 50 ML IV SCH (09:41)
[2016-11-27] MEDS: MEGESTROL ACETATE 20 MG TABLET PO SCH ×2 (11:50→17:06)
--- NOTE | 2016-11-27 16:50 | PDOC PROGRESS REPORT ---
Subjective Progress Note for:: 11/27/16 Subjective:: Patient was seen by the bedside, he has no new complaints Physical Exam Vital Signs: Temp Pulse Resp BP Pulse Ox 98.3 F 94 16 128/71 H 99 11/27/16 16:20 11/27/16 16:20 11/27/16 16:20 11/27/16 16:20 11/27/16 16:20 Intake & Output 11/26/16 11/27/16 11/28/16 06:59 06:59 06:59 Intake Total 910 850 200 Output Total 900 Balance 910 -50 200 Weight 49.7 kg 52.2 kg General appearance: PRESENT: no acute distress Eye exam: PRESENT: PERRLA Cardiovascular exam: PRESENT: +S1, +S2 GI/Abdominal exam: PRESENT: soft Results Laboratory Results: 11/26/16 06:58 11/26/16 06:58 Impressions: Chest X-Ray 11/23/16 17:11 IMPRESSION: DIFFUSE OPACITY IN THE RIGHT LUNG, SIMILAR TO THE RECENT CT, SECONDARY TO COLLAPSE FROM OBSTRUCTING HILAR MASS. 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 (2) Anemia in chronic kidney disease (CKD) Is this a current diagnosis for this admission?: Yes (3) Dyspnea on exertion Is this a current diagnosis for this admission?: Yes (4) End stage renal disease on dialysis Is this a current diagnosis for this admission?: Yes (5) GI bleed Qualifiers: GI bleed type/associated pathology: unspecified gastrointestinal hemorrhage type Qualified Code(s): K92.2 - Gastrointestinal hemorrhage, unspecified Is this a current diagnosis for this admission?: Yes (6) Hypercalcemia Is this a current diagnosis for this admission?: Yes (7) Hyponatremia Is this a current diagnosis for this admission?: Yes (8) Hypoxia Is this a current diagnosis for this admission?: Yes (9) 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
[2016-11-27] MEDS: OMEGA-3 ACID ETHYL ESTERS 1 GM CAPSULE PO SCH (17:06)
[2016-11-27] MEDS: DOCUSATE SODIUM 100 MG CAPSULE PO SCH (21:19)
[2016-11-28] MEDS: CLINDAMYCIN 600 MG/D5W RTU 600 MG/50 ML RTUPB IV SCH ×3 (05:32→17:01)
[2016-11-28] MEDS: LEVOTHYROXINE SODIUM 0.05 MG TABLET PO SCH (08:09)
[2016-11-28] MEDS: CARVEDILOL 12.5 MG TABLET PO SCH ×2 (09:17→21:21)
[2016-11-28] MEDS: MULTIVITAMIN TABLET PO SCH (09:17)
[2016-11-28] MEDS: CEFTRIAXONE 1 GM/D5W RTU 50 ML IV SCH (09:18)
[2016-11-28] MEDS: LISINOPRIL 10 MG TABLET PO SCH (09:18)
[2016-11-28] MEDS: HYDRALAZINE HCL 50 MG TABLET PO SCH ×3 (09:18→17:03)
[2016-11-28] MEDS: HYDROCODONE/ACETAMINOPHEN 5-325 MG TABLET PO PRN ×2 (09:24→19:17)
[2016-11-28] MEDS: MEGESTROL ACETATE 20 MG TABLET PO SCH ×2 (11:33→17:02)
[2016-11-28] MEDS: OMEGA-3 ACID ETHYL ESTERS 1 GM CAPSULE PO SCH (17:03)
--- NOTE | 2016-11-28 17:07 | PDOC PROGRESS REPORT ---
Subjective Progress Note for:: 11/28/16 Subjective:: Patient with stage IV cancer on hemodialysis, family is looking at making him a DO NOT RESUSCITATE Physical Exam Vital Signs: Temp Pulse Resp BP Pulse Ox 97.8 F 93 18 144/63 H 100 11/28/16 16:00 11/28/16 16:00 11/28/16 16:00 11/28/16 16:00 11/28/16 16:00 Intake & Output 11/27/16 11/28/16 11/29/16 06:59 06:59 06:59 Intake Total 850 828 100 Output Total 900 100 Balance -50 728 100 Weight 52.2 kg 52.2 kg General appearance: PRESENT: no acute distress Eye exam: PRESENT: PERRLA Respiratory exam: PRESENT: clear to auscultation ifeoma Cardiovascular exam: PRESENT: +S1, +S2 Results Laboratory Results: 11/26/16 06:58 11/26/16 06:58 Impressions: Chest X-Ray 11/23/16 17:11 IMPRESSION: DIFFUSE OPACITY IN THE RIGHT LUNG, SIMILAR TO THE RECENT CT, SECONDARY TO COLLAPSE FROM OBSTRUCTING HILAR MASS. 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 (2) Anemia in chronic kidney disease (CKD) Is this a current diagnosis for this admission?: Yes (3) Dyspnea on exertion Is this a current diagnosis for this admission?: Yes (4) End stage renal disease on dialysis Is this a current diagnosis for this admission?: Yes (5) GI bleed Qualifiers: GI bleed type/associated pathology: unspecified gastrointestinal hemorrhage type Qualified Code(s): K92.2 - Gastrointestinal hemorrhage, unspecified Is this a current diagnosis for this admission?: Yes (6) Hypercalcemia Is this a current diagnosis for this admission?: Yes (7) Hyponatremia Is this a current diagnosis for this admission?: Yes (8) Hypoxia Is this a current diagnosis for this admission?: Yes (9) 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
[2016-11-28] MEDS: DOCUSATE SODIUM 100 MG CAPSULE PO SCH (21:21)
[2016-11-29] MEDS: CLINDAMYCIN 600 MG/D5W RTU 600 MG/50 ML RTUPB IV SCH ×3 (01:34→20:20)
[2016-11-29 06:28] LABS: ABSOLUTE EOSINOPHILS # (AUTO) 0.2 10^3/uL (0.0-0.6); ABSOLUTE MONOCYTES (AUTO) 0.8 10^3/uL (0.1-1.4); ABSOLUTE NEUT (AUTO) 8.2 10^3/uL (1.7-8.2); BASOPHILS % (AUTO) 0.5 % (0-2); EOSINOPHILS % (AUTO) 1.6 % (0-6); HEMATOCRIT 28.4 % (37.9-51.0); HGB HCT DIFFERENCE -1.4; LYMPHOCYTES % (AUTO) 9.6 % (13-45); MEAN CORPUSCULAR HEMOGLOBIN 22.5 pg (27.0-33.4); MEAN CORPUSCULAR HGB CONC 31.5 g/dL (32.0-36.0); MEAN CORPUSCULAR VOLUME 71 fl (80-97); RED BLOOD COUNT 3.98 10^6/uL (4.35-5.55); RED CELL DISTRIBUTION WIDTH 19.1 % (11.5-14.0); SEGMENTED NEUTROPHILS % (AUTO) 80.3 % (42-78); WHITE BLOOD COUNT 10.3 10^3/uL (4.0-10.5)
[2016-11-29 06:51] LABS: ANION GAP 15 (5-19); BLOOD UREA NITROGEN 31 mg/dL (7-20); CALCIUM 10.7 mg/dL (8.4-10.2); CARBON DIOXIDE 26 mmol/L (22-30); CHLORIDE 90 mmol/L (98-107); CREATININE RESULT 5.91 mg/dL (0.52-1.25); GLUCOSE 109 mg/dL (75-110); POTASSIUM 4.2 mmol/L (3.6-5.0); SODIUM 131.2 mmol/L (137-145)
--- NOTE | 2016-11-29 07:56 | PDOC PROGRESS REPORT ---
Subjective Progress Note for:: 11/29/16 Subjective:: No reported fever or chills. Remain on IV Cleocin and Rocephin coverage. Blood culture remain no growth x 4 days. Remain on supplemental oxygen via nasal cannula at 2 L/min. Denied any chest pain. Right shoulder joint pain is satisfactorily control on current medication management. He denied nausea or vomiting. Tolerating oral feeding. Patient reported difficulty with sleep. Physical Exam Vital Signs: Temp Pulse Resp BP Pulse Ox 98.4 F 92 18 138/53 H 99 11/29/16 03:59 11/29/16 03:59 11/29/16 03:59 11/29/16 03:59 11/29/16 03:59 Intake & Output 11/28/16 11/29/16 11/30/16 06:59 06:59 06:59 Intake Total 828 1145 Output Total 100 0 Balance 728 1145 Weight 52.2 kg Physical Exam: General appearance: PRESENT: no acute distress, well-developed, well-nourished Head exam: PRESENT: atraumatic, normocephalic Eye exam: PRESENT: conjunctiva pink, EOMI, PERRLA. ABSENT: scleral icterus Respiratory exam: PRESENT: decreased breath sounds - lower right lung zone region Cardiovascular exam: PRESENT: RRR. ABSENT: diastolic murmur, rubs, systolic murmur GI/Abdominal exam: PRESENT: normal bowel sounds, soft. ABSENT: distended, guarding, mass, organolmegaly, rebound, tenderness Extremities exam: PRESENT: full ROM Musculoskeletal exam: PRESENT: deformity - right shoulder joint deformity due to metastatic disease process., full ROM - limited across right shoulder joint due to elicited tenderness from bone metastatic involvement. Neurological exam: PRESENT: alert, awake, CN II-XII grossly intact, motor sensory deficit Psychiatric exam: PRESENT: appropriate affect, normal mood. ABSENT: homicidal ideation, suicidal ideation Skin exam: PRESENT: dry, intact, warm. ABSENT: cyanosis, rash Results Laboratory Results: 11/29/16 06:01 11/29/16 06:01 11/29/16 11/29/16 06:01 06:01 WBC 10.3 RBC 3.98 L Hgb 9.0 L Hct 28.4 L MCV 71 L MCH 22.5 L MCHC 31.5 L RDW 19.1 H Plt Count 447 Seg Neutrophils % 80.3 H Lymphocytes % 9.6 L Monocytes % 8.0 Eosinophils % 1.6 Basophils % 0.5 Absolute Neutrophils 8.2 Absolute Lymphocytes 1.0 Absolute Monocytes 0.8 Absolute Eosinophils 0.2 Absolute Basophils 0.0 Sodium 131.2 L Potassium 4.2 Chloride 90 L Carbon Dioxide 26 Anion Gap 15 BUN 31 H Creatinine 5.91 H Est GFR ( Amer) 11 L Est GFR (Non-Af Amer) 9 L Glucose 109 Calcium 10.7 H Impressions: Chest X-Ray 11/23/16 17:11 IMPRESSION: DIFFUSE OPACITY IN THE RIGHT LUNG, SIMILAR TO THE RECENT CT, SECONDARY TO COLLAPSE FROM OBSTRUCTING HILAR MASS. 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 (2) Lung cancer metastatic to bone Is this a current diagnosis for this admission?: Yes (3) Dyspnea on exertion Is this a current diagnosis for this admission?: YesPlan: Improved on supplemental oxygen at 2L/min via nasal cannula. (4) Hypoxia Is this a current diagnosis for this admission?: Yes (5) Lung mass Is this a current diagnosis for this admission?: Yes (6) Mediastinal mass Is this a current diagnosis for this admission?: Yes (7) End stage renal disease on dialysis Is this a current diagnosis for this admission?: YesPlan: Continue hemodialysis as per Dr. Yan, web weaver, directive. Patient had session of dialysis earlier today. (8) Postobstructive pneumonia Is this a current diagnosis for this admission?: YesPlan: Continue IV Rocephin and Cleocin coverage. Follow up on blood and sputum culture findings, no growth to date. (9) Constipation Qualifiers: Constipation type: unspecified constipation type Qualified Code(s): K59.00 - Constipation, unspecified Is this a current diagnosis for this admission?: Yes - Time Time Spent with patient: 25-34 minutes Medications reviewed and adjusted accordingly: Yes Anticipated discharge: Home Within: within 48 hours - Inpatient Certification Medical Necessity: Need For Continuous Telemetry Monitoring, Need for IV Antibiotics, Risk of Complication if Not Cared For in Hospital Post Hospital Care: D/C Veterinary Surgeon Documentation - Plan Summary Plan Summary: See attending physician orders.
[2016-11-29] MEDS: LEVOTHYROXINE SODIUM 0.05 MG TABLET PO SCH (08:07)
[2016-11-29] MEDS: CARVEDILOL 12.5 MG TABLET PO SCH ×2 (09:25→23:46)
[2016-11-29] MEDS: MULTIVITAMIN TABLET PO SCH (09:25)
[2016-11-29] MEDS: HYDRALAZINE HCL 50 MG TABLET PO SCH ×3 (09:25→20:21)
[2016-11-29] MEDS: LISINOPRIL 10 MG TABLET PO SCH (09:25)
[2016-11-29] MEDS: CEFTRIAXONE 1 GM/D5W RTU 50 ML IV SCH (09:25)
[2016-11-29] MEDS: HYDROCODONE/ACETAMINOPHEN 5-325 MG TABLET PO PRN (09:39)
[2016-11-29] MEDS: MEGESTROL ACETATE 20 MG TABLET PO SCH ×2 (12:25→20:19)
[2016-11-29] MEDS ORDERED: EPOETIN ALFA INJ 20000 UNIT/1 ML VIAL (RENAL) IV PRN ×2 (18:57→19:48)
--- NOTE | 2016-11-29 19:38 | PDOC PROGRESS REPORT ---
Subjective Progress Note for:: 11/29/16 Subjective:: I saw the patient tonight during hemodialysis treatment. He doesn't have any new complaints except for his right shoulder pain and some shortness of breath. Dialysis is going well without any problems and he is tolerating it. Physical Exam Vital Signs: Temp Pulse Resp BP Pulse Ox 97.8 F 92 18 174/76 H 100 11/29/16 16:00 11/29/16 16:00 11/29/16 16:00 11/29/16 16:00 11/29/16 18:27 Intake & Output 11/28/16 11/29/16 11/30/16 06:59 06:59 06:59 Intake Total 828 1145 711 Output Total 100 0 Balance 728 1145 711 Weight 52.2 kg Vital signs during dialysis when I saw him: Blood pressure of 157/72, heart rate of 98, blood flow rate of 350 mL per minute using his AV fistula, dialysate flow of 600 mL per minute. Exam: General appearance: PRESENT: no acute distress, cooperative, well-developed, well-nourished Head exam: PRESENT: atraumatic, normocephalic Eye exam: PRESENT: conjunctiva pale, PERRLA. ABSENT: scleral icterus Neck exam: ABSENT: JVD Respiratory exam: PRESENT: Normal breath sounds. ABSENT: crackles, rales, rhonchi, unlabored, wheezes Cardiovascular exam: PRESENT: Regular rate rhythm -+S1, +S2. Grade 2/6 systolic murmur ABSENT: diastolic murmur GI/Abdominal exam: PRESENT: normal bowel sounds, soft. ABSENT: guarding, mass, tenderness Extremities exam: ABSENT: No edema Neurological exam: PRESENT: alert, awake, oriented to person, place and time. Skin exam: PRESENT: dry, warm, Results Laboratory Results: 11/29/16 06:01 11/29/16 06:01 11/29/16 11/29/16 06:01 06:01 WBC 10.3 RBC 3.98 L Hgb 9.0 L Hct 28.4 L MCV 71 L MCH 22.5 L MCHC 31.5 L RDW 19.1 H Plt Count 447 Seg Neutrophils % 80.3 H Lymphocytes % 9.6 L Monocytes % 8.0 Eosinophils % 1.6 Basophils % 0.5 Absolute Neutrophils 8.2 Absolute Lymphocytes 1.0 Absolute Monocytes 0.8 Absolute Eosinophils 0.2 Absolute Basophils 0.0 Sodium 131.2 L Potassium 4.2 Chloride 90 L Carbon Dioxide 26 Anion Gap 15 BUN 31 H Creatinine 5.91 H Est GFR ( Amer) 11 L Est GFR (Non-Af Amer) 9 L Glucose 109 Calcium 10.7 H 11/24/16 09:44 Blood Blood Culture - Final NO GROWTH IN 5 DAYS 11/24/16 09:03 Blood Blood Culture - Final NO GROWTH IN 5 DAYS Impressions: Chest X-Ray 11/23/16 17:11 IMPRESSION: DIFFUSE OPACITY IN THE RIGHT LUNG, SIMILAR TO THE RECENT CT, SECONDARY TO COLLAPSE FROM OBSTRUCTING HILAR MASS. Assessment & Plan - Diagnosis (1) End stage renal disease on dialysis Is this a current diagnosis for this admission?: YesPlan: We will do dialysis today for 2 hours, using the patient's left upper arm AV fistula, with 2 potassium bath, blood flow rate of 350 mL per minute, dialysate flow rate of 600 mL per minute, ultrafiltration 1.5 L, no heparin and Procrit with 20,000 units during dialysis intravenously. We will continue to monitor dialysis and supervise it while the patient is here but from nephrology standpoint, I think the patient can be discharged home if appropriate as deemed by the primary service. Dr. Yan will be back tomorrow to assume care. (2) Anemia in chronic kidney disease (CKD) Is this a current diagnosis for this admission?: YesPlan: Procrit will be given as needed during dialysis treatment. (3) Hypercalcemia Is this a current diagnosis for this admission?: YesPlan: We will use low calcium bath during dialysis treatment. Discontinue calcium carbonate supplement. (4) Hyponatremia Is this a current diagnosis for this admission?: YesPlan: Mild. Possibly due to some fluid retention versus due to cancer. (5) Dyspnea on exertion Is this a current diagnosis for this admission?: Yes (6) Lung cancer metastatic to bone Is this a current diagnosis for this admission?: Yes (7) Postobstructive pneumonia Is this a current diagnosis for this admission?: YesPlan: On IV antibiotics. - Time Time with patient: 15-25 minutes
[2016-11-29] MEDS: OMEGA-3 ACID ETHYL ESTERS 1 GM CAPSULE PO SCH (20:19)
[2016-11-29] MEDS: DOCUSATE SODIUM 100 MG CAPSULE PO SCH (22:36)
[2016-11-30] MEDS: CLINDAMYCIN 600 MG/D5W RTU 600 MG/50 ML RTUPB IV SCH ×2 (02:08→10:52)
[2016-11-30] MEDS ORDERED: LORAZEPAM 0.5 MG TABLET ONE (03:41)
[2016-11-30] MEDS ORDERED: LORAZEPAM 0.5 MG TABLET PO PRN ×2 (03:46→09:09)
--- NOTE | 2016-11-30 07:57 | PDOC DISCHARGE SUMMARY ---
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 (2) Lung cancer metastatic to bone Is this a current diagnosis for this admission?: Yes (3) Dyspnea on exertion Is this a current diagnosis for this admission?: Yes (4) Hypoxia Is this a current diagnosis for this admission?: Yes (5) Lung mass Is this a current diagnosis for this admission?: Yes (6) Mediastinal mass Is this a current diagnosis for this admission?: Yes (7) End stage renal disease on dialysis Is this a current diagnosis for this admission?: Yes (8) Postobstructive pneumonia Is this a current diagnosis for this admission?: Yes (9) Constipation Is this a current diagnosis for this admission?: Yes - Additional Information Resuscitation Status: Full Code Home Medications: Calcium Carbonate [Tums Chewable 500 mg Tab.chew] 1,000 mg PO DAILYP PRN Carvedilol [Coreg 25 mg Tablet] 25 mg PO Q12 11/24/16 Docusate Sodium [Colace 100 mg Capsule] 100 mg PO DAILYP PRN 11/24/16 Hydralazine HCl [Apresoline 50 mg Tablet] 100 mg PO Q8 11/24/16 Hydrocortisone [Hydrocortisone 0.5% Cream 28.35 gm] 1 applic TOP DAILYP PRN 11/09 Hydrocortisone [Proctozone-Hc] 1 applic TOP BID 11/24/16 Ketoconazole [Nizoral] 1 applic TOP DAILY 11/24/16 Levothyroxine Sodium [Synthroid 0.05 mg Tablet] 0.05 mg PO DAILY 11/24/16 Lisinopril [Prinivil] 20 mg PO DAILY 11/24/16 Megestrol Acetate [Megace 20 mg Tablet] 40 mg PO BIDLS 11/24/16 Multivit-Min/FA/Lycopen/Lutein [Centrum Silver Men Tablet] 1 each PO DAILY 11/24 Bailey-3/Dha/Epa/Fish Oil [Fish Oil 1,000 mg Softgel] 3,000 mg PO DAILY 11/24/16 Ondansetron HCl [Zofran 4 mg Tablet] 4 mg PO Q6HP PRN 11/24/16 Simethicone [Mylicon 80 mg Chewable Tablet] 80 mg PO DAILYP PRN 11/24/16 Tramadol HCl [Ultram 50 mg Tablet] 50 mg PO DAILYP PRN 11/24/16 Umeclidinium Brm/Vilanterol Tr [Anoro Ellipta 62.5-25 Mcg INH] 1 puff IH DAILY 11/24/16 History of Present Illness History of Present Illness: LIZZETTE KELLY is a 81 year old male with ESRD on hemodialysis and recently diagnosed with metastatic squamous cell carcinoma with right scapular and shoulder region involvement. Patient was brought to the ED by family due to worsening exertional shortness of breath. Patient denied any significant associated coughing or sputum production. He reported some amount of chest pain , located more centrally, worsen with movement. He denied any fever or chills. No significant leg swelling but there has been persistent right upper extremity puffiness. Patient reported compliance with hemodialysis sessions, fluid and dietary restriction. Due to persistent SOB and functional limitation patient was advised admission. In view of his advanced metastatic disease and presenting symptoms, I had extensive discussion with patient at bedside with regard to expectation and treatment plan. Patient expressed to have treatment for his cancer. Hospital Course Hospital Course: Patient was admitted with possible post obstructive pneumonia and metastatic carcinoma with bone involvement and primary as Lung cancer bases on right scapular biopsy report. He was treated with IV Ceftriaxone and Cleocin in view of his ESRD on hemodialysis. He was seen in consultation by Dr. Cardona, medical oncologist, Dr Sebastian, radiation oncologist and Dr Yan, Net Technical Architect, during this hospitalization for appropriate specialty needs. His blood culture was no growth x 5 days. His pain was adequately controlled on prn percocet 5/325 mg po q4hrs without over sedation and allowed participation in care. Family and patient did agreed to make him a DNR on day of discharge. He will continue palliative radiation therapy on outpatient and follow up with noted specialist as instructed upon discharge. He will follow up with me in office as instructed upon discharge. Physical Exam Vital Signs: Temp Pulse Resp BP Pulse Ox 97.5 F 102 H 18 125/67 100 11/29/16 20:03 11/30/16 07:00 11/29/16 23:38 11/29/16 23:38 11/30/16 02:03 Intake & Output 02/0611/30/16 12/01/16 06:59 06:59 06:59 Intake Total 1145 1291 Output Total 0 0 Balance 1145 1291 Physical Exam: General appearance: PRESENT: no acute distress, well-developed, well-nourished Head exam: PRESENT: atraumatic, normocephalic Eye exam: PRESENT: conjunctiva pink, EOMI, PERRLA. ABSENT: scleral icterus Respiratory exam: PRESENT: decreased breath sounds - lower right lung zone region Cardiovascular exam: PRESENT: RRR. ABSENT: diastolic murmur, rubs, systolic murmur GI/Abdominal exam: PRESENT: normal bowel sounds, soft. ABSENT: distended, guarding, mass, organolmegaly, rebound, tenderness Extremities exam: PRESENT: full ROM Musculoskeletal exam: PRESENT: deformity - right shoulder joint deformity due to metastatic disease process., full ROM - limited across right shoulder joint due to elicited tenderness from bone metastatic involvement. Neurological exam: PRESENT: alert, awake, CN II-XII grossly intact, motor sensory deficit Psychiatric exam: PRESENT: appropriate affect, normal mood. ABSENT: homicidal ideation, suicidal ideation Skin exam: PRESENT: dry, intact, warm. ABSENT: cyanosis, rash Results Laboratory Results: 11/29/16 06:01 11/29/16 06:01 11/24/16 09:44 Blood Blood Culture - Final NO GROWTH IN 5 DAYS 11/24/16 09:03 Blood Blood Culture - Final NO GROWTH IN 5 DAYS Impressions: Chest X-Ray 11/23/16 17:11 IMPRESSION: DIFFUSE OPACITY IN THE RIGHT LUNG, SIMILAR TO THE RECENT CT, SECONDARY TO COLLAPSE FROM OBSTRUCTING HILAR MASS. Qualifiers PATEINT BEING DISCHARGED WITH ANY OF THE FOLLOWING DIAGNOSIS?: No Plan Discharge Plan: D/C home today. Follow up with listed specialist and myself in office as instructed upon discharge. Patient's resuscitation status is DNR. Time Spent: Greater than 30 Minutes - More than 50 % of my time was spent in counseling with daughter and patient regarding post hospitalization care and DNR status.
[2016-11-30] MEDS: HYDROCODONE/ACETAMINOPHEN 5-325 MG TABLET PO PRN ×2 (08:25→12:08)
[2016-11-30] MEDS: LEVOTHYROXINE SODIUM 0.05 MG TABLET PO SCH (08:25)
[2016-11-30] MEDS: CARVEDILOL 12.5 MG TABLET PO SCH (09:53)
[2016-11-30] MEDS: LISINOPRIL 10 MG TABLET PO SCH (09:55)
[2016-11-30] MEDS: HYDRALAZINE HCL 50 MG TABLET PO SCH ×2 (09:56→14:51)
[2016-11-30] MEDS: CEFTRIAXONE 1 GM/D5W RTU 50 ML IV SCH (09:56)
[2016-11-30] MEDS: MULTIVITAMIN TABLET PO SCH (09:56)
[2016-11-30] MEDS: MEGESTROL ACETATE 20 MG TABLET PO SCH (12:08)
[2016-11-30 12:22] VITALS: BP 143/58
--- NOTE | 2016-11-30 16:24 | PDOC PROGRESS REPORT ---
Subjective Progress Note for:: 11/30/16 Subjective:: Seen today.He is doing better from the dyspnea and the pain of right shoulder point of view.Plan for dc today after XRT.He is now a DNR .Daughter by bedside and had a long cameron conversation. Physical Exam Vital Signs: Temp Pulse Resp BP Pulse Ox 97.7 F 91 18 143/58 H 99 11/30/16 12:18 11/30/16 12:18 11/30/16 12:18 11/30/16 12:18 11/30/16 12:18 Intake & Output 11/29/16 11/30/16 12/01/16 06:59 06:59 06:59 Intake Total 1145 1291 Output Total 0 0 Balance 1145 1291 General appearance: PRESENT: no acute distress, disheveled, thin Respiratory exam: PRESENT: clear to auscultation ifeoma. ABSENT: crackles Cardiovascular exam: PRESENT: +S1, +S2 GI/Abdominal exam: PRESENT: normal bowel sounds, soft. ABSENT: distended, firm , tenderness Results Laboratory Results: 11/29/16 06:01 11/29/16 06:01 Impressions: Chest X-Ray 11/23/16 17:11 IMPRESSION: DIFFUSE OPACITY IN THE RIGHT LUNG, SIMILAR TO THE RECENT CT, SECONDARY TO COLLAPSE FROM OBSTRUCTING HILAR MASS. Assessment & Plan - Diagnosis (1) End stage renal disease on dialysis Is this a current diagnosis for this admission?: YesPlan: Plan for next HD as Out patient. (2) Lung cancer metastatic to bone Is this a current diagnosis for this admission?: Yes (3) Postobstructive pneumonia Is this a current diagnosis for this admission?: YesPlan: Much improved with antibiotics.Follow with Hem Onc.
== END 2016-11-30 15:19 | disposition home or self-care (01) | DRG 193 ==
LOC: ER 16:43 → EH 22:12 → UNDOADMIN 22:12 → 4S 11-24 02:24 → EH 11-24 02:24 → 4S 11-24 02:42
PROVIDERS: ADMIT Internal Medicine Geriatric Medicine; ATTEND Internal Medicine Geriatric Medicine
PROC: 5A1D00Z (ICD-10-PCS; principal; 2016-11-24)
PROC: 3E0F7GC Introduction of Other Therapeutic Substance into Respiratory Tract, Via Natural or Artificial Opening (ICD-10-PCS; 2016-11-24)
PROC: 5A1D00Z (ICD-10-PCS; 2016-11-26)
PROC: 5A1D00Z (ICD-10-PCS; 2016-11-29)
DX: J18.8 Other pneumonia, unspecified organism (principal); N18.6 End stage renal disease; C34.11 Malignant neoplasm of upper lobe, right bronchus or lung; C77.1 Secondary and unspecified malignant neoplasm of intrathoracic lymph nodes; C79.51 Secondary malignant neoplasm of bone; I12.0 Hypertensive chronic kidney disease with stage 5 chronic kidney disease or end stage renal disease; E87.1 Hypo-osmolality and hyponatremia; K92.2 Gastrointestinal hemorrhage, unspecified; J44.9 Chronic obstructive pulmonary disease, unspecified; E83.52 Hypercalcemia; K59.00 Constipation, unspecified; Z99.2 Dependence on renal dialysis; E03.9 Hypothyroidism, unspecified; F32.9 Major depressive disorder, single episode, unspecified; Z79.899 Other long term (current) drug therapy; I25.2 Old myocardial infarction; Z66 Do not resuscitate; Z87.891 Personal history of nicotine dependence; Z91.041 Radiographic dye allergy status
CPT/HCPCS: 36415; 71010; 80048; 80053; 80074; 82550; 82553; 84484; 85025; 87040; 87340; 93005; 93010; 99285; J0696; J3490; Q4081